=== PATIENT | female | born 1975 ===

== ENCOUNTER 2019-05-27 13:01 | Outpatient (CLI) | payer BC ==
--- NOTE | 2019-05-27 13:24 | RAD ---
XR Knee Rt 4 View STANDARD HISTORY: Right knee pain FINDINGS: No fracture or dislocation is identified. No joint effusion or osteophytosis is seen.
== END 2019-05-27 13:02 | disposition home or self-care (01) ==
LOC: SCSRAD 13:01
PROVIDERS: ATTEND Family Medicine
DX: M25.561 Pain in right knee (principal)